=== PATIENT | male | born 1995 | race Caucasian/White ===

== ENCOUNTER → 2017-08-18 | Outpatient (CLI) | payer BC ==
--- NOTE | 2017-08-18 10:51 | DIAGNOSTIC IMAGING REPORT ---
ABDOMEN ULTRASOUND FOR HERNIA CLINICAL HISTORY: BILATERAL INGUINAL HERNIA COMPARISON STUDY: None. FINDINGS: Real-time sonographic imaging of the right and left inguinal regions were performed with medical office representative images. Small fat-containing reducible left inguinal hernia. No right inguinal hernia identified. The left inguinal hernia measures 1.6 cm. IMPRESSION: 1. Small fat-containing reducible left inguinal hernia. 2. No right inguinal hernia. Electronically signed by: Harvinder Cagle M.D. 08/18/2017 10:49 AM Dictated Date/Time: 08/18/2017 10:48 AM
== END | disposition home or self-care (01) ==
LOC: C.ULTRBC 09:56
PROVIDERS: ATTEND Surgery
DX: K40.90 Unilateral inguinal hernia, without obstruction or gangrene, not specified as recurrent (principal)